=== PATIENT | male | born 1965 | race Caucasian/White ===

== ENCOUNTER 2021-05-16 18:51 | Inpatient (IN) | payer OTHER, SELFPAY ==
[~2021-05-16] VITALS: Ht 162.6 cm; Wt 85.7 kg
[2021-05-16 19:20] VITALS: BP_SYST 131
[2021-05-16] MEDS ORDERED: guaiFENesin 200 MG/CODEINE 20 MG/ 10 ML UDC PO ONE (23:15)
[2021-05-16] MEDS ORDERED: DEXAMETHASONE SOD PHOSPHATE 10 MG/ML VIAL IVP ONE (23:15)
[2021-05-16] MEDS ORDERED: cefTRIAXone 1 GM IVPB PREMIX 50 ML IV ONE (23:15)
[2021-05-16] MEDS ORDERED: IPRATROPIUM BROM 0.5 MG/2.5 ML VIAL.NEB (ATROVENT) INH ONE (23:15)
[2021-05-16] MEDS ORDERED: ALBUTEROL SULFATE 0.083% 2.5 MG/3 ML VIAL.NEB INH ONE (23:15)
[2021-05-16] MEDS ORDERED: NACL 0.9% 1,000 ML IV ONE (23:15)
[2021-05-16 23:49] LABS: BASOPHILS % (AUTO) 0.4 % (0.0-2.0); HEMOGLOBIN 13.3 g/dL (14.0-18.0); LYMPHOCYTES # (AUTO) 0.5 K/uL (1.0-5.5); LYMPHOCYTES % (AUTO) 14.1 % (20.5-51.5); MEAN CORPUSCULAR HEMOGLOBIN 26 pg (27-31); MEAN CORPUSCULAR HGB CONC 33 % (32-36); MEAN CORPUSCULAR VOLUME 79 fL (79.0-98.0); MONOCYTES # (AUTO) 0.2 K/uL (0.0-1.0); MONOCYTES % (AUTO) 5.9 % (1.7-9.3); NEUTROPHILS # (AUTO) 2.8 K/uL (1.8-7.7); NEUTROPHILS % (AUTO) 79.6 % (40.0-70.0); PLATELET COUNT (AUTO) 168 K/uL (130-430); RED BLOOD CELL COUNT(AUTO) 5.07 MIL/uL (4.2-6.2); RED CELL DISTRIBUTION WIDTH 13.7 % (9.0-15.0); WHITE BLOOD COUNT (AUTO) 3.5 K/uL (4.8-10.8)
[2021-05-16 23:56] LABS: CALCIUM 8.3 mg/dL (8.4-11.0); CREATININE 0.97 mg/dL (0.55-1.30); POTASSIUM 3.8 mmol/L (3.5-5.1)
[2021-05-17 00:02] LABS: ALBUMIN 3.1 g/dL (3.4-4.8); TOTAL BILIRUBIN 0.3 mg/dL (0.0-1.0)
[2021-05-17] MEDS ORDERED: guaiFENesin 200 MG/CODEINE 20 MG/ 10 ML UDC ONE (05:43)
[2021-05-17] MEDS ORDERED: DEXAMETHASONE SOD PHOSPHATE 10 MG/ML VIAL ONE ×2 (05:44→22:16)
[2021-05-17] MEDS: cefTRIAXone 1 GM IVPB PREMIX 50 ML IV SCH (06:11)
[2021-05-17] MEDS ORDERED: AZITHROMYCIN 500 MG/VIAL (ZITHROMAX) IV ONE (07:42)
[2021-05-17] MEDS: AZITHROMYCIN 500 MG in NS 250 ML IV SCH (07:56)
[2021-05-17 08:20] LABS: BASOPHILS % (AUTO) 0.2 % (0.0-2.0); HEMATOCRIT 35.6 % (36-54); LYMPHOCYTES # (AUTO) 0.4 K/uL (1.0-5.5); LYMPHOCYTES % (AUTO) 11.6 % (20.5-51.5); MEAN CORPUSCULAR HEMOGLOBIN 26 pg (27-31); MEAN CORPUSCULAR HGB CONC 34 % (32-36); MEAN CORPUSCULAR VOLUME 78 fL (79.0-98.0); MONOCYTES # (AUTO) 0.2 K/uL (0.0-1.0); MONOCYTES % (AUTO) 4.4 % (1.7-9.3); NEUTROPHILS # (AUTO) 2.9 K/uL (1.8-7.7); NEUTROPHILS % (AUTO) 83.8 % (40.0-70.0); PLATELET COUNT (AUTO) 177 K/uL (130-430); RED BLOOD CELL COUNT(AUTO) 4.59 MIL/uL (4.2-6.2); RED CELL DISTRIBUTION WIDTH 13.6 % (9.0-15.0); WHITE BLOOD COUNT (AUTO) 3.5 K/uL (4.8-10.8)
[2021-05-17 09:02] LABS: ALBUMIN 2.8 g/dL (3.4-4.8); CALCIUM 7.9 mg/dL (8.4-11.0); CREATININE 0.85 mg/dL (0.55-1.30); POTASSIUM 4.2 mmol/L (3.5-5.1); THYROID STIMULATING HORMONE 0.38 uIu/mL (0.36-3.74); TOTAL BILIRUBIN 0.2 mg/dL (0.0-1.0)
[2021-05-17 21:30] LABS: PROTHROMBIN TIME 10.2 SECS (9.5-12.5)
[2021-05-17] MEDS ORDERED: DEXAMETHASONE SOD PHOSPHATE 10 MG/ML VIAL IVP SCH (22:00)
[2021-05-17 23:00] VITALS: BP_SYST 116
[2021-05-18 08:24] LABS: BASOPHILS % (AUTO) 0.1 % (0.0-2.0); HEMATOCRIT 39.3 % (36-54); HEMOGLOBIN 13.1 g/dL (14.0-18.0); LYMPHOCYTES # (AUTO) 0.6 K/uL (1.0-5.5); LYMPHOCYTES % (AUTO) 9.8 % (20.5-51.5); MEAN CORPUSCULAR HEMOGLOBIN 26 pg (27-31); MEAN CORPUSCULAR HGB CONC 33 % (32-36); MEAN CORPUSCULAR VOLUME 79 fL (79.0-98.0); MONOCYTES # (AUTO) 0.5 K/uL (0.0-1.0); NEUTROPHILS # (AUTO) 5.5 K/uL (1.8-7.7); NEUTROPHILS % (AUTO) 83.1 % (40.0-70.0); PLATELET COUNT (AUTO) 208 K/uL (130-430); RED BLOOD CELL COUNT(AUTO) 4.99 MIL/uL (4.2-6.2); RED CELL DISTRIBUTION WIDTH 13.9 % (9.0-15.0); WHITE BLOOD COUNT (AUTO) 6.6 K/uL (4.8-10.8)
[2021-05-18] MEDS ORDERED: AZITHROMYCIN 500 MG/VIAL (ZITHROMAX) IV ONE (08:32)
[2021-05-18] MEDS ORDERED: cefTRIAXone 1 GM VIAL ONE (08:33)
[2021-05-18] MEDS: AZITHROMYCIN 500 MG in NS 250 ML IV SCH (08:52)
[2021-05-18] MEDS: ASCORBIC ACID 500 MG TABLET PO SCH (08:52)
[2021-05-18] MEDS: CHOLECALCIFEROL (VITAMIN D3) 5,000 UNIT TABLET PO SCH (08:52)
[2021-05-18] MEDS: FAMOTIDINE 20 MG TABLET PO SCH (08:52)
[2021-05-18] MEDS: APIXABAN 2.5 MG TABLET PO SCH (08:53)
[2021-05-18] MEDS ORDERED: PROMETHAZINE-DM 6.25 MG-15 MG/5 ML UDC PO PRN (09:00)
[2021-05-18] MEDS ORDERED: LORazepam 1 MG TABLET ONE (09:27)
[2021-05-18 09:29] LABS: CALCIUM 8.7 mg/dL (8.4-11.0); CREATININE 0.88 mg/dL (0.55-1.30); POTASSIUM 4.1 mmol/L (3.5-5.1)
[2021-05-18 09:30] VITALS: BP_SYST 122
[2021-05-18 09:35] LABS: ALBUMIN 2.8 g/dL (3.4-4.8); TOTAL BILIRUBIN 0.2 mg/dL (0.0-1.0)
[2021-05-18] MEDS: cefTRIAXone 1 GM IVPB PREMIX 50 ML IV SCH (11:20)
[2021-05-18] MEDS: LORazepam 1 MG TABLET PO PRN (14:17)
[2021-05-19] MEDS ORDERED: IVERMECTIN 3 MG TABLET PO ONE (03:15)
[2021-05-19 04:00] VITALS: BP_SYST 126
[2021-05-19 08:05] VITALS: BP_SYST 118
[2021-05-19] MEDS: FAMOTIDINE 20 MG TABLET PO SCH ×2 (09:04→21:12)
[2021-05-19] MEDS: ASCORBIC ACID 500 MG TABLET PO SCH ×2 (09:04→21:12)
[2021-05-19] MEDS: CHOLECALCIFEROL (VITAMIN D3) 5,000 UNIT TABLET PO SCH (09:04)
[2021-05-19] MEDS: APIXABAN 2.5 MG TABLET PO SCH ×2 (09:07→21:33)
[2021-05-19] MEDS: AZITHROMYCIN 500 MG in NS 250 ML IV SCH (09:52)
[2021-05-19] MEDS: cefTRIAXone 1 GM IVPB PREMIX 50 ML IV SCH (09:52)
[2021-05-19 12:15] VITALS: BP_SYST 120
[2021-05-19] MEDS ORDERED: LORA10TA7 PO (12:43)
[2021-05-19] MEDS ORDERED: ASPI-1393 PO (12:43)
[2021-05-19 18:50] VITALS: BP_SYST 124
[2021-05-19 20:00] VITALS: BP_SYST 132
[2021-05-19] MEDS: DEXAMETHASONE SOD PHOSPHATE 10 MG/ML VIAL IVP SCH (22:29)
[2021-05-20] VITALS (7 sets, daily range): BP systolic 115–130
[2021-05-20] MEDS: LORATADINE 10 MG TABLET PO SCH (09:07)
[2021-05-20] MEDS: CHOLECALCIFEROL (VITAMIN D3) 5,000 UNIT TABLET PO SCH (09:07)
[2021-05-20] MEDS: ASPIRIN 81 MG TABLET(ECOTRIN) PO SCH (09:08)
[2021-05-20] MEDS: ASCORBIC ACID 500 MG TABLET PO SCH ×2 (09:08→21:19)
[2021-05-20] MEDS: FAMOTIDINE 20 MG TABLET PO SCH ×2 (09:08→21:19)
[2021-05-20] MEDS: DOXYCYCLINE HYCLATE 100 MG in D5W 100 ML IV SCH ×2 (09:09→21:56)
[2021-05-20] MEDS: APIXABAN 2.5 MG TABLET PO SCH ×2 (09:11→21:20)
[2021-05-20 09:33] LABS: C-REACTIVE PROTEIN QUANT 10.4 mg/dL (0-0.5); CALCIUM 8.7 mg/dL (8.4-11.0); CREATININE 0.93 mg/dL (0.55-1.30); HEMATOCRIT 39.3 % (36-54); HEMOGLOBIN 13.2 g/dL (14.0-18.0); LYMPHOCYTES # (AUTO) 0.3 K/uL (1.0-5.5); LYMPHOCYTES % (AUTO) 5.4 % (20.5-51.5); MEAN CORPUSCULAR HEMOGLOBIN 27 pg (27-31); MEAN CORPUSCULAR HGB CONC 34 % (32-36); MEAN CORPUSCULAR VOLUME 79 fL (79.0-98.0); MONOCYTES # (AUTO) 0.1 K/uL (0.0-1.0); MONOCYTES % (AUTO) 2.1 % (1.7-9.3); NEUTROPHILS # (AUTO) 5.4 K/uL (1.8-7.7); NEUTROPHILS % (AUTO) 92.5 % (40.0-70.0); PLATELET COUNT (AUTO) 245 K/uL (130-430); POTASSIUM 4.4 mmol/L (3.5-5.1); RED BLOOD CELL COUNT(AUTO) 4.97 MIL/uL (4.2-6.2); RED CELL DISTRIBUTION WIDTH 13.8 % (9.0-15.0); WHITE BLOOD COUNT (AUTO) 5.9 K/uL (4.8-10.8)
[2021-05-20] MEDS: CEFTRIAXONE SOD 1 GM/ D5W 50 ML IV SCH ×2 (11:53)
[2021-05-20] MEDS: DEXAMETHASONE SOD PHOSPHATE 10 MG/ML VIAL IVP SCH (22:35)
[2021-05-21] VITALS: BP_SYST 122
[2021-05-21 04:00] VITALS: BP_SYST 126
[2021-05-21 08:00] VITALS: BP_SYST 120
[2021-05-21 08:21] LABS: BASOPHILS % (AUTO) 0.1 % (0.0-2.0); HEMATOCRIT 37.1 % (36-54); HEMOGLOBIN 12.3 g/dL (14.0-18.0); LYMPHOCYTES # (AUTO) 0.4 K/uL (1.0-5.5); MEAN CORPUSCULAR HEMOGLOBIN 26 pg (27-31); MEAN CORPUSCULAR HGB CONC 33 % (32-36); MEAN CORPUSCULAR VOLUME 79 fL (79.0-98.0); MONOCYTES # (AUTO) 0.3 K/uL (0.0-1.0); MONOCYTES % (AUTO) 2.9 % (1.7-9.3); NEUTROPHILS # (AUTO) 8.6 K/uL (1.8-7.7); PLATELET COUNT (AUTO) 300 K/uL (130-430); RED BLOOD CELL COUNT(AUTO) 4.68 MIL/uL (4.2-6.2); RED CELL DISTRIBUTION WIDTH 13.9 % (9.0-15.0); WHITE BLOOD COUNT (AUTO) 9.3 K/uL (4.8-10.8)
[2021-05-21] MEDS ORDERED: TOCILIZUMAB 600 MG in NS 100 ML IV ONE (08:30)
[2021-05-21 08:33] LABS: CALCIUM 8.8 mg/dL (8.4-11.0); CREATININE 0.8 mg/dL (0.55-1.30); POTASSIUM 4.4 mmol/L (3.5-5.1)
[2021-05-21] MEDS: LORATADINE 10 MG TABLET PO SCH (09:31)
[2021-05-21] MEDS: CHOLECALCIFEROL (VITAMIN D3) 5,000 UNIT TABLET PO SCH (09:31)
[2021-05-21] MEDS: ASPIRIN 81 MG TABLET(ECOTRIN) PO SCH (09:31)
[2021-05-21] MEDS: APIXABAN 2.5 MG TABLET PO SCH ×2 (09:31→21:47)
[2021-05-21] MEDS: FAMOTIDINE 20 MG TABLET PO SCH ×2 (09:32→21:44)
[2021-05-21] MEDS: FLUoxetine HCL 20 MG CAPSULE (PROzac) PO SCH (09:32)
[2021-05-21] MEDS: ASCORBIC ACID 500 MG TABLET PO SCH ×2 (09:32→21:45)
[2021-05-21] MEDS: DOXYCYCLINE HYCLATE 100 MG in D5W 100 ML IV SCH ×2 (09:32→21:46)
[2021-05-21] MEDS: CEFTRIAXONE SOD 1 GM/ D5W 50 ML IV SCH ×2 (11:52)
[2021-05-21 12:00] VITALS: BP_SYST 129
[2021-05-21 16:00] VITALS: BP_SYST 129
[2021-05-21 20:00] VITALS: BP_SYST 128
[2021-05-21] MEDS: ALPRAZolam 0.25 MG TABLET PO SCH (21:45)
[2021-05-21] MEDS: DEXAMETHASONE SOD PHOSPHATE 10 MG/ML VIAL IVP SCH (21:47)
[2021-05-22] VITALS: BP_SYST 128
[2021-05-22 04:00] VITALS: BP_SYST 128
[2021-05-22 07:38] LABS: BASOPHILS % (AUTO) 0.1 % (0.0-2.0); HEMATOCRIT 38.7 % (36-54); HEMOGLOBIN 12.8 g/dL (14.0-18.0); LYMPHOCYTES # (AUTO) 0.5 K/uL (1.0-5.5); LYMPHOCYTES % (AUTO) 4.5 % (20.5-51.5); MEAN CORPUSCULAR HEMOGLOBIN 26 pg (27-31); MEAN CORPUSCULAR HGB CONC 33 % (32-36); MEAN CORPUSCULAR VOLUME 79 fL (79.0-98.0); MONOCYTES # (AUTO) 0.6 K/uL (0.0-1.0); MONOCYTES % (AUTO) 5.8 % (1.7-9.3); NEUTROPHILS # (AUTO) 9.5 K/uL (1.8-7.7); NEUTROPHILS % (AUTO) 89.6 % (40.0-70.0); PLATELET COUNT (AUTO) 342 K/uL (130-430); RED BLOOD CELL COUNT(AUTO) 4.88 MIL/uL (4.2-6.2); RED CELL DISTRIBUTION WIDTH 13.8 % (9.0-15.0); WHITE BLOOD COUNT (AUTO) 10.7 K/uL (4.8-10.8)
[2021-05-22 08:00] VITALS: BP_SYST 132
[2021-05-22 08:00] LABS: ALBUMIN 2.4 g/dL (3.4-4.8); CALCIUM 9.1 mg/dL (8.4-11.0); CREATININE 0.8 mg/dL (0.55-1.30); POTASSIUM 4.3 mmol/L (3.5-5.1); TOTAL BILIRUBIN 0.4 mg/dL (0.0-1.0)
[2021-05-22] MEDS: ASPIRIN 81 MG TABLET(ECOTRIN) PO SCH (09:20)
[2021-05-22] MEDS: FAMOTIDINE 20 MG TABLET PO SCH ×2 (09:20→21:48)
[2021-05-22] MEDS: FLUoxetine HCL 20 MG CAPSULE (PROzac) PO SCH (09:20)
[2021-05-22] MEDS: CHOLECALCIFEROL (VITAMIN D3) 5,000 UNIT TABLET PO SCH (09:20)
[2021-05-22] MEDS: ASCORBIC ACID 500 MG TABLET PO SCH ×2 (09:20→21:50)
[2021-05-22] MEDS: LORATADINE 10 MG TABLET PO SCH (09:20)
[2021-05-22] MEDS: DOXYCYCLINE HYCLATE 100 MG in D5W 100 ML IV SCH ×2 (09:21→21:52)
[2021-05-22] MEDS: APIXABAN 2.5 MG TABLET PO SCH ×2 (09:21→21:49)
[2021-05-22] MEDS: CEFTRIAXONE SOD 1 GM/ D5W 50 ML IV SCH ×2 (11:55)
[2021-05-22 12:00] VITALS: BP_SYST 129
[2021-05-22 16:33] VITALS: BP_SYST 129
[2021-05-22] MEDS: ALPRAZolam 0.25 MG TABLET PO SCH (21:50)
[2021-05-22] MEDS: MELATONIN 5 MG TABLET PO SCH (21:51)
[2021-05-22 22:13] VITALS: BP_SYST 117
[2021-05-22] MEDS: DEXAMETHASONE SOD PHOSPHATE 10 MG/ML VIAL IVP SCH (23:44)
[2021-05-23 00:56] VITALS: BP_SYST 101
[2021-05-23 08:00] VITALS: BP_SYST 125
[2021-05-23] MEDS: LORATADINE 10 MG TABLET PO SCH (08:58)
[2021-05-23] MEDS: DOXYCYCLINE HYCLATE 100 MG in D5W 100 ML IV SCH ×2 (08:58→20:13)
[2021-05-23] MEDS: ASCORBIC ACID 500 MG TABLET PO SCH ×2 (08:58→20:18)
[2021-05-23] MEDS: FAMOTIDINE 20 MG TABLET PO SCH ×2 (08:59→20:18)
[2021-05-23] MEDS: CHOLECALCIFEROL (VITAMIN D3) 5,000 UNIT TABLET PO SCH (08:59)
[2021-05-23] MEDS: ASPIRIN 81 MG TABLET(ECOTRIN) PO SCH (08:59)
[2021-05-23] MEDS: APIXABAN 2.5 MG TABLET PO SCH ×2 (09:00→20:20)
[2021-05-23 09:10] LABS: HEMATOCRIT 38.3 % (36-54); HEMOGLOBIN 12.8 g/dL (14.0-18.0); LYMPHOCYTES # (AUTO) 0.3 K/uL (1.0-5.5); LYMPHOCYTES % (AUTO) 4.4 % (20.5-51.5); MEAN CORPUSCULAR HEMOGLOBIN 26 pg (27-31); MEAN CORPUSCULAR HGB CONC 33 % (32-36); MEAN CORPUSCULAR VOLUME 78 fL (79.0-98.0); MONOCYTES # (AUTO) 0.2 K/uL (0.0-1.0); MONOCYTES % (AUTO) 2.5 % (1.7-9.3); NEUTROPHILS # (AUTO) 6.4 K/uL (1.8-7.7); NEUTROPHILS % (AUTO) 93.1 % (40.0-70.0); PLATELET COUNT (AUTO) 332 K/uL (130-430); RED BLOOD CELL COUNT(AUTO) 4.91 MIL/uL (4.2-6.2); RED CELL DISTRIBUTION WIDTH 13.6 % (9.0-15.0); WHITE BLOOD COUNT (AUTO) 6.9 K/uL (4.8-10.8)
[2021-05-23 09:38] LABS: CREATININE 0.79 mg/dL (0.55-1.30); POTASSIUM 4.3 mmol/L (3.5-5.1)
[2021-05-23 12:00] VITALS: BP_SYST 112
[2021-05-23] MEDS: CEFTRIAXONE SOD 1 GM/ D5W 50 ML IV SCH ×2 (12:38)
[2021-05-23 16:07] VITALS: BP_SYST 122
[2021-05-23] MEDS: FLUoxetine HCL 20 MG CAPSULE (PROzac) PO SCH (20:17)
[2021-05-23] MEDS: ALPRAZolam 0.25 MG TABLET PO SCH (20:20)
[2021-05-23] MEDS: DEXAMETHASONE SOD PHOSPHATE 10 MG/ML VIAL IVP SCH (20:21)
[2021-05-23] MEDS: MELATONIN 5 MG TABLET PO SCH (21:00)
[2021-05-24 01:34] VITALS: BP_SYST 112
[2021-05-24 04:00] VITALS: BP_SYST 147
[2021-05-24] MEDS: ALBUTEROL MDI INHALATION 8 GM INH INH PRN (06:38)
[2021-05-24 07:50] LABS: BASOPHILS % (AUTO) 0.2 % (0.0-2.0); EOSINOPHILS % (AUTO) 0.1 % (0.0-4.0); HEMOGLOBIN 12.7 g/dL (14.0-18.0); LYMPHOCYTES # (AUTO) 0.4 K/uL (1.0-5.5); LYMPHOCYTES % (AUTO) 5.1 % (20.5-51.5); MEAN CORPUSCULAR HEMOGLOBIN 26 pg (27-31); MEAN CORPUSCULAR HGB CONC 33 % (32-36); MEAN CORPUSCULAR VOLUME 78 fL (79.0-98.0); MONOCYTES # (AUTO) 0.2 K/uL (0.0-1.0); MONOCYTES % (AUTO) 3.4 % (1.7-9.3); NEUTROPHILS # (AUTO) 6.3 K/uL (1.8-7.7); NEUTROPHILS % (AUTO) 91.2 % (40.0-70.0); PLATELET COUNT (AUTO) 330 K/uL (130-430); RED BLOOD CELL COUNT(AUTO) 4.84 MIL/uL (4.2-6.2); RED CELL DISTRIBUTION WIDTH 13.2 % (9.0-15.0); WHITE BLOOD COUNT (AUTO) 6.9 K/uL (4.8-10.8)
[2021-05-24 08:00] VITALS: BP_SYST 118
[2021-05-24] MEDS: DOCUSATE SODIUM 100 MG CAPSULE PO SCH ×2 (09:00→09:13)
[2021-05-24] MEDS: DOXYCYCLINE HYCLATE 100 MG in D5W 100 ML IV SCH ×2 (09:10→21:40)
[2021-05-24] MEDS: FAMOTIDINE 20 MG TABLET PO SCH ×2 (09:11→21:41)
[2021-05-24] MEDS: ASPIRIN 81 MG TABLET(ECOTRIN) PO SCH (09:11)
[2021-05-24] MEDS: ASCORBIC ACID 500 MG TABLET PO SCH ×2 (09:11→21:41)
[2021-05-24] MEDS: LORATADINE 10 MG TABLET PO SCH (09:11)
[2021-05-24] MEDS: CHOLECALCIFEROL (VITAMIN D3) 5,000 UNIT TABLET PO SCH (09:12)
[2021-05-24] MEDS: APIXABAN 2.5 MG TABLET PO SCH ×2 (09:12→21:42)
[2021-05-24 09:17] LABS: CALCIUM 9.3 mg/dL (8.4-11.0); CREATININE 0.72 mg/dL (0.55-1.30); POTASSIUM 4.5 mmol/L (3.5-5.1)
[2021-05-24 12:00] VITALS: BP_SYST 115
[2021-05-24] MEDS: CEFTRIAXONE SOD 1 GM/ D5W 50 ML IV SCH ×2 (12:22)
[2021-05-24 16:00] VITALS: BP_SYST 117
[2021-05-24] MEDS: FLUoxetine HCL 20 MG CAPSULE (PROzac) PO SCH (16:59)
[2021-05-24] MEDS: ALPRAZolam 0.25 MG TABLET PO SCH (21:41)
[2021-05-24] MEDS: MELATONIN 5 MG TABLET PO SCH (21:43)
[2021-05-24] MEDS: DEXAMETHASONE SOD PHOSPHATE 10 MG/ML VIAL IVP SCH (22:00)
[2021-05-25 00:28] VITALS: BP_SYST 106
[2021-05-25 04:55] VITALS: BP_SYST 107
[2021-05-25 08:00] VITALS: BP_SYST 106
[2021-05-25] MEDS: DOXYCYCLINE HYCLATE 100 MG in D5W 100 ML IV SCH ×2 (09:09→21:20)
[2021-05-25] MEDS: LORATADINE 10 MG TABLET PO SCH (09:09)
[2021-05-25] MEDS: ASPIRIN 81 MG TABLET(ECOTRIN) PO SCH (09:09)
[2021-05-25] MEDS: APIXABAN 2.5 MG TABLET PO SCH ×2 (09:10→21:13)
[2021-05-25] MEDS: FAMOTIDINE 20 MG TABLET PO SCH ×2 (09:10→21:16)
[2021-05-25] MEDS: CHOLECALCIFEROL (VITAMIN D3) 5,000 UNIT TABLET PO SCH (09:10)
[2021-05-25] MEDS: ASCORBIC ACID 500 MG TABLET PO SCH ×2 (09:10→21:16)
[2021-05-25] MEDS: CEFTRIAXONE SOD 1 GM/ D5W 50 ML IV SCH ×2 (11:00)
[2021-05-25 11:30] VITALS: BP_SYST 112
[2021-05-25 12:00] VITALS: BP_SYST 112
[2021-05-25 20:22] VITALS: BP_SYST 107
[2021-05-25] MEDS: FLUoxetine HCL 20 MG CAPSULE (PROzac) PO SCH ×2 (21:00→21:08)
[2021-05-25] MEDS: ALPRAZolam 0.25 MG TABLET PO SCH (21:15)
[2021-05-25] MEDS: MELATONIN 5 MG TABLET PO SCH (21:26)
[2021-05-25] MEDS: DEXAMETHASONE SOD PHOSPHATE 10 MG/ML VIAL IVP SCH (21:27)
[2021-05-26 00:01] VITALS: BP_SYST 115
[2021-05-26 08:00] VITALS: BP_SYST 96
[2021-05-26] MEDS: CHOLECALCIFEROL (VITAMIN D3) 5,000 UNIT TABLET PO SCH (09:00)
[2021-05-26] MEDS: DOXYCYCLINE HYCLATE 100 MG in D5W 100 ML IV SCH ×2 (09:00→21:00)
[2021-05-26] MEDS: APIXABAN 2.5 MG TABLET PO SCH ×2 (09:00→21:00)
[2021-05-26] MEDS: LORATADINE 10 MG TABLET PO SCH (09:00)
[2021-05-26] MEDS: ASCORBIC ACID 500 MG TABLET PO SCH ×2 (09:00→21:00)
[2021-05-26] MEDS: ASPIRIN 81 MG TABLET(ECOTRIN) PO SCH (09:00)
[2021-05-26] MEDS: FAMOTIDINE 20 MG TABLET PO SCH ×2 (09:00→21:00)
[2021-05-26 10:07] LABS: BASOPHILS % (AUTO) 0.2 % (0.0-2.0); EOSINOPHILS % (AUTO) 0.1 % (0.0-4.0); HEMATOCRIT 39.1 % (36-54); HEMOGLOBIN 12.9 g/dL (14.0-18.0); LYMPHOCYTES # (AUTO) 0.5 K/uL (1.0-5.5); MEAN CORPUSCULAR HEMOGLOBIN 26 pg (27-31); MEAN CORPUSCULAR HGB CONC 33 % (32-36); MEAN CORPUSCULAR VOLUME 79 fL (79.0-98.0); MONOCYTES # (AUTO) 0.2 K/uL (0.0-1.0); MONOCYTES % (AUTO) 2.2 % (1.7-9.3); NEUTROPHILS % (AUTO) 92.5 % (40.0-70.0); PLATELET COUNT (AUTO) 323 K/uL (130-430); RED BLOOD CELL COUNT(AUTO) 4.97 MIL/uL (4.2-6.2); RED CELL DISTRIBUTION WIDTH 13.8 % (9.0-15.0); WHITE BLOOD COUNT (AUTO) 9.7 K/uL (4.8-10.8)
[2021-05-26 11:01] LABS: ALBUMIN 2.5 g/dL (3.4-4.8); CALCIUM 8.7 mg/dL (8.4-11.0); CREATININE 0.76 mg/dL (0.55-1.30); PHOSPHORUS 3.8 mg/dL (2.7-4.5); POTASSIUM 4.1 mmol/L (3.5-5.1); TOTAL BILIRUBIN 0.4 mg/dL (0.0-1.0)
[2021-05-26] MEDS: LORazepam 1 MG TABLET PO PRN (11:32)
[2021-05-26] MEDS: CEFTRIAXONE SOD 1 GM/ D5W 50 ML IV SCH ×2 (11:32)
[2021-05-26] MEDS: DOCUSATE SODIUM 100 MG CAPSULE PO PRN (11:32)
[2021-05-26 12:00] VITALS: BP_SYST 112
[2021-05-26 16:00] VITALS: BP_SYST 109
[2021-05-26 20:44] VITALS: BP_SYST 113
[2021-05-26] MEDS: FLUoxetine HCL 20 MG CAPSULE (PROzac) PO SCH (21:00)
[2021-05-26] MEDS: MELATONIN 5 MG TABLET PO SCH (21:00)
[2021-05-26] MEDS: ALPRAZolam 0.25 MG TABLET PO SCH (21:00)
[2021-05-26] MEDS: DEXAMETHASONE SOD PHOSPHATE 10 MG/ML VIAL IVP SCH (22:00)
[2021-05-26 23:59] VITALS: BP_SYST 124
[2021-05-27 00:01] VITALS: BP_SYST 124
[2021-05-27 05:21] VITALS: BP_SYST 117
[2021-05-27 08:33] VITALS: BP_SYST 116
[2021-05-27] MEDS: DOXYCYCLINE HYCLATE 100 MG in D5W 100 ML IV SCH ×2 (08:44→21:53)
[2021-05-27] MEDS: FAMOTIDINE 20 MG TABLET PO SCH ×2 (08:44→21:40)
[2021-05-27] MEDS: LORATADINE 10 MG TABLET PO SCH (08:44)
[2021-05-27] MEDS: ASCORBIC ACID 500 MG TABLET PO SCH ×2 (08:45→21:39)
[2021-05-27] MEDS: ASPIRIN 81 MG TABLET(ECOTRIN) PO SCH (08:45)
[2021-05-27] MEDS: APIXABAN 2.5 MG TABLET PO SCH ×2 (08:46→21:41)
[2021-05-27] MEDS: CHOLECALCIFEROL (VITAMIN D3) 5,000 UNIT TABLET PO SCH (09:30)
[2021-05-27 11:33] VITALS: BP_SYST 111
[2021-05-27] MEDS: CEFTRIAXONE SOD 1 GM/ D5W 50 ML IV SCH ×2 (12:26)
[2021-05-27 15:32] VITALS: BP_SYST 117
[2021-05-27 20:15] VITALS: BP_SYST 118
[2021-05-27] MEDS: FLUoxetine HCL 20 MG CAPSULE (PROzac) PO SCH (21:40)
[2021-05-27] MEDS: MELATONIN 5 MG TABLET PO SCH (21:40)
[2021-05-27] MEDS: ALPRAZolam 0.25 MG TABLET PO SCH (21:41)
[2021-05-27] MEDS: DEXAMETHASONE SOD PHOSPHATE 10 MG/ML VIAL IVP SCH (21:50)
[2021-05-28 00:40] VITALS: BP_SYST 116
[2021-05-28 08:00] VITALS: BP_SYST 109
[2021-05-28] MEDS: DOXYCYCLINE HYCLATE 100 MG in D5W 100 ML IV SCH ×2 (08:45→21:11)
[2021-05-28] MEDS: FAMOTIDINE 20 MG TABLET PO SCH ×2 (08:45→22:33)
[2021-05-28] MEDS: CHOLECALCIFEROL (VITAMIN D3) 5,000 UNIT TABLET PO SCH (08:46)
[2021-05-28] MEDS: LORATADINE 10 MG TABLET PO SCH (08:46)
[2021-05-28] MEDS: ASCORBIC ACID 500 MG TABLET PO SCH ×2 (08:46→22:33)
[2021-05-28] MEDS: ASPIRIN 81 MG TABLET(ECOTRIN) PO SCH (08:46)
[2021-05-28] MEDS: APIXABAN 2.5 MG TABLET PO SCH ×2 (08:47→22:34)
[2021-05-28] MEDS: CEFTRIAXONE SOD 1 GM/ D5W 50 ML IV SCH ×2 (10:50)
[2021-05-28 12:00] VITALS: BP_SYST 117
[2021-05-28 16:00] VITALS: BP_SYST 111
[2021-05-28] MEDS: BENZOCAINE/MENTHOL 1 EACH LOZENGE MM PRN (17:16)
[2021-05-28] MEDS: DEXAMETHASONE SOD PHOSPHATE 10 MG/ML VIAL IVP SCH (21:10)
[2021-05-28] MEDS: MELATONIN 5 MG TABLET PO SCH (22:32)
[2021-05-28] MEDS: ALPRAZolam 0.25 MG TABLET PO SCH (22:33)
[2021-05-28] MEDS: FLUoxetine HCL 20 MG CAPSULE (PROzac) PO SCH (22:33)
[2021-05-29 01:23] VITALS: BP_SYST 113
[2021-05-29] MEDS: ALBUTEROL MDI INHALATION 8 GM INH INH PRN (08:53)
[2021-05-29] MEDS: ASPIRIN 81 MG TABLET(ECOTRIN) PO SCH (09:08)
[2021-05-29] MEDS: FAMOTIDINE 20 MG TABLET PO SCH ×2 (09:08→21:37)
[2021-05-29] MEDS: ASCORBIC ACID 500 MG TABLET PO SCH ×2 (09:08→21:36)
[2021-05-29] MEDS: CHOLECALCIFEROL (VITAMIN D3) 5,000 UNIT TABLET PO SCH (09:09)
[2021-05-29] MEDS: LORATADINE 10 MG TABLET PO SCH (09:09)
[2021-05-29] MEDS: APIXABAN 2.5 MG TABLET PO SCH ×2 (09:10→21:38)
[2021-05-29] MEDS: DOXYCYCLINE HYCLATE 100 MG in D5W 100 ML IV SCH ×2 (09:10→21:58)
[2021-05-29 09:51] VITALS: BP_SYST 106
[2021-05-29] MEDS: BENZOCAINE/MENTHOL 1 EACH LOZENGE MM PRN (10:47)
[2021-05-29] MEDS: CEFTRIAXONE SOD 1 GM/ D5W 50 ML IV SCH ×2 (10:48)
[2021-05-29 12:00] VITALS: BP_SYST 109
[2021-05-29 13:38] VITALS: BP_SYST 106
[2021-05-29 16:00] VITALS: BP_SYST 106
[2021-05-29 20:40] VITALS: BP_SYST 138
[2021-05-29] MEDS: DEXAMETHASONE SOD PHOSPHATE 10 MG/ML VIAL IVP SCH (21:34)
[2021-05-29] MEDS: FLUoxetine HCL 20 MG CAPSULE (PROzac) PO SCH (21:36)
[2021-05-29] MEDS: ALPRAZolam 0.25 MG TABLET PO SCH (21:37)
[2021-05-29] MEDS: MELATONIN 5 MG TABLET PO SCH (21:38)
[2021-05-30 00:26] VITALS: BP_SYST 107
[2021-05-30 08:00] VITALS: BP_SYST 111
[2021-05-30] MEDS: DOXYCYCLINE HYCLATE 100 MG in D5W 100 ML IV SCH ×2 (09:00→21:13)
[2021-05-30] MEDS: APIXABAN 2.5 MG TABLET PO SCH ×2 (09:33→21:18)
[2021-05-30] MEDS: LORATADINE 10 MG TABLET PO SCH (09:34)
[2021-05-30] MEDS: ASPIRIN 81 MG TABLET(ECOTRIN) PO SCH (09:34)
[2021-05-30] MEDS: ASCORBIC ACID 500 MG TABLET PO SCH ×2 (09:35→21:17)
[2021-05-30] MEDS: FAMOTIDINE 20 MG TABLET PO SCH ×2 (09:35→21:15)
[2021-05-30] MEDS: CHOLECALCIFEROL (VITAMIN D3) 5,000 UNIT TABLET PO SCH (09:35)
[2021-05-30] MEDS: CEFTRIAXONE SOD 1 GM/ D5W 50 ML IV SCH ×2 (11:00)
[2021-05-30 12:00] VITALS: BP_SYST 107
[2021-05-30] MEDS ORDERED: FUROSEMIDE 20 MG/2 ML VIAL IVP ONE (15:45)
[2021-05-30 16:00] VITALS: BP_SYST 109
[2021-05-30 19:00] VITALS: BP_SYST 114
[2021-05-30] MEDS: MELATONIN 5 MG TABLET PO SCH (21:13)
[2021-05-30] MEDS: predniSONE 20 MG TABLET PO SCH (21:14)
[2021-05-30] MEDS: FLUoxetine HCL 20 MG CAPSULE (PROzac) PO SCH (21:14)
[2021-05-30] MEDS: ALPRAZolam 0.25 MG TABLET PO SCH (21:15)
[2021-05-30] MEDS: FUROSEMIDE 20 MG/2 ML VIAL IVP SCH (21:22)
[2021-05-30] MEDS ORDERED: PROMETHAZINE HCL 6.25 MG/5 ML UDC ONE (23:32)
[2021-05-30] MEDS ORDERED: PROMETHAZINE-DM 6.25 MG-15 MG/5 ML UDC PO PRN (23:45)
[2021-05-31] VITALS: BP_SYST 116
[2021-05-31] MEDS ORDERED: PROMETHAZINE HCL 6.25 MG/5 ML UDC ONE (02:43)
[2021-05-31 08:45] LABS: C-REACTIVE PROTEIN QUANT 7.9 mg/dL (0-0.5)
[2021-05-31] MEDS: FUROSEMIDE 20 MG/2 ML VIAL IVP SCH ×2 (09:00→22:37)
[2021-05-31 09:40] VITALS: BP_SYST 101
[2021-05-31] MEDS: ASCORBIC ACID 500 MG TABLET PO SCH ×2 (10:00→22:37)
[2021-05-31] MEDS: LORATADINE 10 MG TABLET PO SCH (10:00)
[2021-05-31] MEDS: ASPIRIN 81 MG TABLET(ECOTRIN) PO SCH (10:01)
[2021-05-31] MEDS: DOXYCYCLINE HYCLATE 100 MG in D5W 100 ML IV SCH ×2 (10:01→22:36)
[2021-05-31] MEDS: CHOLECALCIFEROL (VITAMIN D3) 5,000 UNIT TABLET PO SCH (10:01)
[2021-05-31] MEDS: FAMOTIDINE 20 MG TABLET PO SCH ×2 (10:01→22:38)
[2021-05-31] MEDS: APIXABAN 2.5 MG TABLET PO SCH ×2 (10:06→22:38)
[2021-05-31] MEDS: CEFTRIAXONE SOD 1 GM/ D5W 50 ML IV SCH ×2 (11:00)
[2021-05-31 11:39] VITALS: BP_SYST 101; BP_SYST 140
[2021-05-31 15:42] VITALS: BP_SYST 120
[2021-05-31] MEDS: BENZOCAINE/MENTHOL 1 EACH LOZENGE MM PRN (16:10)
[2021-05-31 20:00] VITALS: BP_SYST 146
[2021-05-31] MEDS: MELATONIN 5 MG TABLET PO SCH (21:00)
[2021-05-31] MEDS: predniSONE 20 MG TABLET PO SCH (22:37)
[2021-05-31] MEDS: FLUoxetine HCL 20 MG CAPSULE (PROzac) PO SCH (22:38)
[2021-06-01] VITALS: BP_SYST 117; BP_SYST 146
[2021-06-01 08:00] VITALS: BP_SYST 132
[2021-06-01 10:25] LABS: BASOPHILS % (AUTO) 0.2 % (0.0-2.0); EOSINOPHILS # (AUTO) 0.1 K/uL (0.0-0.4); EOSINOPHILS % (AUTO) 0.6 % (0.0-4.0); HEMATOCRIT 41.2 % (36-54); HEMOGLOBIN 13.8 g/dL (14.0-18.0); LYMPHOCYTES # (AUTO) 0.6 K/uL (1.0-5.5); LYMPHOCYTES % (AUTO) 5.8 % (20.5-51.5); MEAN CORPUSCULAR HEMOGLOBIN 27 pg (27-31); MEAN CORPUSCULAR HGB CONC 34 % (32-36); MEAN CORPUSCULAR VOLUME 79 fL (79.0-98.0); MONOCYTES # (AUTO) 0.4 K/uL (0.0-1.0); NEUTROPHILS # (AUTO) 9.2 K/uL (1.8-7.7); NEUTROPHILS % (AUTO) 89.4 % (40.0-70.0); PLATELET COUNT (AUTO) 223 K/uL (130-430); RED CELL DISTRIBUTION WIDTH 13.4 % (9.0-15.0); WHITE BLOOD COUNT (AUTO) 10.3 K/uL (4.8-10.8)
[2021-06-01] MEDS: CHOLECALCIFEROL (VITAMIN D3) 5,000 UNIT TABLET PO SCH (11:25)
[2021-06-01] MEDS: ASCORBIC ACID 500 MG TABLET PO SCH ×2 (11:25→20:46)
[2021-06-01] MEDS: LORATADINE 10 MG TABLET PO SCH (11:26)
[2021-06-01] MEDS: ASPIRIN 81 MG TABLET(ECOTRIN) PO SCH (11:26)
[2021-06-01] MEDS: APIXABAN 2.5 MG TABLET PO SCH ×2 (11:27→20:56)
[2021-06-01] MEDS: FAMOTIDINE 20 MG TABLET PO SCH ×2 (11:27→20:47)
[2021-06-01] MEDS: FUROSEMIDE 20 MG/2 ML VIAL IVP SCH ×2 (11:28→21:27)
[2021-06-01] MEDS: DOXYCYCLINE HYCLATE 100 MG in D5W 100 ML IV SCH ×2 (11:29→21:27)
[2021-06-01] MEDS: CEFTRIAXONE SOD 1 GM/ D5W 50 ML IV SCH ×2 (11:29)
[2021-06-01 11:55] LABS: CALCIUM 9.1 mg/dL (8.4-11.0); CREATININE 0.91 mg/dL (0.55-1.30); POTASSIUM 3.8 mmol/L (3.5-5.1)
[2021-06-01 14:00] VITALS: BP_SYST 132
[2021-06-01 16:00] VITALS: BP_SYST 107
[2021-06-01 20:00] VITALS: BP_SYST 100
[2021-06-01] MEDS: FLUoxetine HCL 20 MG CAPSULE (PROzac) PO SCH (20:46)
[2021-06-01] MEDS: predniSONE 20 MG TABLET PO SCH (20:46)
[2021-06-01] MEDS: MELATONIN 5 MG TABLET PO SCH (20:47)
[2021-06-02] VITALS: BP_SYST 117
[2021-06-02 07:39] LABS: BASOPHILS # (AUTO) 0.1 K/uL (0.0-0.2); BASOPHILS % (AUTO) 0.6 % (0.0-2.0); EOSINOPHILS # (AUTO) 0.1 K/uL (0.0-0.4); EOSINOPHILS % (AUTO) 0.5 % (0.0-4.0); HEMATOCRIT 42.2 % (36-54); HEMOGLOBIN 14.2 g/dL (14.0-18.0); LYMPHOCYTES # (AUTO) 0.7 K/uL (1.0-5.5); LYMPHOCYTES % (AUTO) 6.9 % (20.5-51.5); MEAN CORPUSCULAR HEMOGLOBIN 27 pg (27-31); MEAN CORPUSCULAR HGB CONC 34 % (32-36); MEAN CORPUSCULAR VOLUME 78 fL (79.0-98.0); MONOCYTES # (AUTO) 0.3 K/uL (0.0-1.0); MONOCYTES % (AUTO) 2.9 % (1.7-9.3); NEUTROPHILS # (AUTO) 8.8 K/uL (1.8-7.7); NEUTROPHILS % (AUTO) 89.1 % (40.0-70.0); PLATELET COUNT (AUTO) 219 K/uL (130-430); RED BLOOD CELL COUNT(AUTO) 5.39 MIL/uL (4.2-6.2); RED CELL DISTRIBUTION WIDTH 13.7 % (9.0-15.0); WHITE BLOOD COUNT (AUTO) 9.9 K/uL (4.8-10.8)
[2021-06-02 08:00] VITALS: BP_SYST 114
[2021-06-02] MEDS: APIXABAN 2.5 MG TABLET PO SCH ×2 (10:32→21:38)
[2021-06-02] MEDS: LORATADINE 10 MG TABLET PO SCH (10:33)
[2021-06-02] MEDS: FUROSEMIDE 20 MG/2 ML VIAL IVP SCH ×2 (10:33→21:36)
[2021-06-02] MEDS: CHOLECALCIFEROL (VITAMIN D3) 5,000 UNIT TABLET PO SCH (10:34)
[2021-06-02] MEDS: ASCORBIC ACID 500 MG TABLET PO SCH ×2 (10:34→21:37)
[2021-06-02] MEDS: ASPIRIN 81 MG TABLET(ECOTRIN) PO SCH (10:34)
[2021-06-02] MEDS: FAMOTIDINE 20 MG TABLET PO SCH ×2 (10:36→21:37)
[2021-06-02 10:44] LABS: CALCIUM 9.4 mg/dL (8.4-11.0); CREATININE 0.89 mg/dL (0.55-1.30); POTASSIUM 3.7 mmol/L (3.5-5.1)
[2021-06-02 12:00] VITALS: BP_SYST 104
[2021-06-02] MEDS: CEFTRIAXONE SOD 1 GM/ D5W 50 ML IV SCH ×2 (13:47)
[2021-06-02] MEDS: DOXYCYCLINE HYCLATE 100 MG in D5W 100 ML IV SCH ×2 (13:47→21:37)
[2021-06-02 16:00] VITALS: BP_SYST 114
[2021-06-02 20:00] VITALS: BP_SYST 117
[2021-06-02] MEDS: FLUoxetine HCL 20 MG CAPSULE (PROzac) PO SCH (21:00)
[2021-06-02] MEDS: MELATONIN 5 MG TABLET PO SCH (21:00)
[2021-06-02] MEDS: predniSONE 20 MG TABLET PO SCH (21:37)
[2021-06-03] VITALS: BP_SYST 115
[2021-06-03 04:00] VITALS: BP_SYST 117
[2021-06-03 08:00] VITALS: BP_SYST 120
[2021-06-03] MEDS: CHOLECALCIFEROL (VITAMIN D3) 5,000 UNIT TABLET PO SCH (09:11)
[2021-06-03] MEDS: LORATADINE 10 MG TABLET PO SCH (09:11)
[2021-06-03] MEDS: FAMOTIDINE 20 MG TABLET PO SCH ×2 (09:11→21:45)
[2021-06-03] MEDS: ASCORBIC ACID 500 MG TABLET PO SCH ×2 (09:11→21:45)
[2021-06-03] MEDS: ASPIRIN 81 MG TABLET(ECOTRIN) PO SCH (09:11)
[2021-06-03] MEDS: DOXYCYCLINE HYCLATE 100 MG in D5W 100 ML IV SCH ×2 (09:12→21:50)
[2021-06-03] MEDS: FUROSEMIDE 20 MG/2 ML VIAL IVP SCH ×2 (09:12→21:46)
[2021-06-03] MEDS: APIXABAN 2.5 MG TABLET PO SCH ×2 (09:17→21:43)
[2021-06-03] MEDS: FLUoxetine HCL 20 MG CAPSULE (PROzac) PO SCH (09:30)
[2021-06-03 12:00] VITALS: BP_SYST 98
[2021-06-03] MEDS: CEFTRIAXONE SOD 1 GM/ D5W 50 ML IV SCH ×2 (12:17)
[2021-06-03 16:00] VITALS: BP_SYST 100
[2021-06-03 17:22] LABS: HEMATOCRIT 42.9 % (36-54); MEAN CORPUSCULAR HEMOGLOBIN 26 pg (27-31); MEAN CORPUSCULAR HGB CONC 33 % (32-36); MEAN CORPUSCULAR VOLUME 79 fL (79.0-98.0); PLATELET COUNT (AUTO) 250 K/uL (130-430); RED BLOOD CELL COUNT(AUTO) 5.43 MIL/uL (4.2-6.2); RED CELL DISTRIBUTION WIDTH 13.5 % (9.0-15.0); WHITE BLOOD COUNT (AUTO) 13.4 K/uL (4.8-10.8)
[2021-06-03 17:54] LABS: CALCIUM 9.1 mg/dL (8.4-11.0); CREATININE 0.95 mg/dL (0.55-1.30); POTASSIUM 3.1 mmol/L (3.5-5.1)
[2021-06-03 18:00] LABS: ALBUMIN 2.2 g/dL (3.4-4.8); BILIRUBIN,DIRECT 0.1 mg/dL (0.0-0.3); TOTAL BILIRUBIN 0.4 mg/dL (0.0-1.0)
[2021-06-03 18:12] LABS: C-REACTIVE PROTEIN QUANT 5.7 mg/dL (0-0.5)
[2021-06-03] MEDS ORDERED: MAG-AL HYDROX/SIMETH 30 ML UDC ONE (18:17)
[2021-06-03] MEDS: MAG-AL HYDROX/SIMETH 30 ML UDC PO PRN (18:18)
[2021-06-03 19:48] LABS: BAND % (MANUAL) 3 % (0-6)
[2021-06-03 19:49] LABS: BASOPHILS % (MANUAL) 0 % (0-2); EOSINOPHILS % (MANUAL) 0 % (0-7); LYMPHOCYTES % (MANUAL) 8 % (20-46); MONOCYTES % (MANUAL) 1 % (0-11)
[2021-06-03 20:00] VITALS: BP_SYST 159
[2021-06-03] MEDS: MELATONIN 5 MG TABLET PO SCH (21:00)
[2021-06-03] MEDS: predniSONE 20 MG TABLET PO SCH (21:45)
[2021-06-04] VITALS (25 sets, daily range): BP systolic 84–148
[2021-06-04] MEDS ORDERED: POTASSIUM CHLORIDE 20 MEQ TAB.PRT.SR PO SCH
[2021-06-04] MEDS: MAG-AL HYDROX/SIMETH 30 ML UDC PO PRN (03:08)
[2021-06-04] MEDS ORDERED: POTASSIUM CHLORIDE 20 MEQ TAB.PRT.SR PO ONE (05:15)
[2021-06-04 07:15] LABS: BASOPHILS % (AUTO) 0.2 % (0.0-2.0); EOSINOPHILS % (AUTO) 0.3 % (0.0-4.0); HEMATOCRIT 41.9 % (36-54); HEMOGLOBIN 13.8 g/dL (14.0-18.0); LYMPHOCYTES # (AUTO) 0.5 K/uL (1.0-5.5); LYMPHOCYTES % (AUTO) 5.3 % (20.5-51.5); MEAN CORPUSCULAR HEMOGLOBIN 26 pg (27-31); MEAN CORPUSCULAR HGB CONC 33 % (32-36); MEAN CORPUSCULAR VOLUME 79 fL (79.0-98.0); MONOCYTES # (AUTO) 0.2 K/uL (0.0-1.0); MONOCYTES % (AUTO) 2.1 % (1.7-9.3); NEUTROPHILS # (AUTO) 9.1 K/uL (1.8-7.7); NEUTROPHILS % (AUTO) 92.1 % (40.0-70.0); PLATELET COUNT (AUTO) 249 K/uL (130-430); RED BLOOD CELL COUNT(AUTO) 5.28 MIL/uL (4.2-6.2); RED CELL DISTRIBUTION WIDTH 13.8 % (9.0-15.0); WHITE BLOOD COUNT (AUTO) 9.9 K/uL (4.8-10.8)
[2021-06-04 07:58] LABS: C-REACTIVE PROTEIN QUANT 4.8 mg/dL (0-0.5); CALCIUM 8.9 mg/dL (8.4-11.0); CREATININE 0.96 mg/dL (0.55-1.30); POTASSIUM 3.8 mmol/L (3.5-5.1)
[2021-06-04] MEDS ORDERED: NALOXONE HCL 0.4 MG/ML AMP (NARCAN) IVP PRN (08:45)
[2021-06-04] MEDS ORDERED: LORazepam 2 MG/ML VIAL IVP PRN (08:45)
[2021-06-04] MEDS ORDERED: ETOMIDATE 20 MG/ 10 ML VIAL (AMIDATE) IVP ONE (08:51)
[2021-06-04] MEDS ORDERED: ROCURONIUM BROMIDE 10 MG/ML (ZEMURON) IV ONE (08:51)
[2021-06-04] MEDS: FLUoxetine HCL 20 MG CAPSULE (PROzac) PO SCH (09:00)
[2021-06-04] MEDS: MORPHINE SULFATE IN 0.9 % NACL 100 ML IV PRN (09:18)
[2021-06-04] MEDS: PROPOFOL DRIP 100 ML IV PRN (09:48)
[2021-06-04] MEDS ORDERED: NOREPINEPHRINE BITARTRATE 4 MG in D5W 246 ML IV PRN (10:00)
[2021-06-04] MEDS: ASCORBIC ACID 500 MG TABLET PO SCH ×2 (11:30→20:48)
[2021-06-04] MEDS: ASPIRIN 81 MG TABLET(ECOTRIN) PO SCH (11:30)
[2021-06-04] MEDS: LORATADINE 10 MG TABLET PO SCH (11:30)
[2021-06-04] MEDS: FAMOTIDINE 20 MG TABLET PO SCH ×2 (11:30→20:48)
[2021-06-04] MEDS: CHOLECALCIFEROL (VITAMIN D3) 5,000 UNIT TABLET PO SCH (11:30)
[2021-06-04] MEDS: FUROSEMIDE 20 MG/2 ML VIAL IVP SCH ×2 (11:33→20:49)
[2021-06-04] MEDS: DOXYCYCLINE HYCLATE 100 MG in D5W 100 ML IV SCH ×2 (11:37→21:00)
[2021-06-04] MEDS: APIXABAN 2.5 MG TABLET PO SCH ×2 (11:39→20:48)
[2021-06-04] MEDS: CEFTRIAXONE SOD 1 GM/ D5W 50 ML IV SCH ×2 (13:14)
[2021-06-04 13:43] LABS: INR 1.3 (0.80-1.20); PROTHROMBIN TIME 12.6 SECS (9.5-12.5)
[2021-06-04] MEDS: D5/0.45 NS 1,000 ML IV SCH (16:19)
[2021-06-04] MEDS: predniSONE 20 MG TABLET PO SCH (20:48)
[2021-06-04] MEDS: MELATONIN 5 MG TABLET PO SCH (21:00)
[2021-06-05] VITALS (28 sets, daily range): BP systolic 84–113
[2021-06-05] MEDS: PROPOFOL DRIP 100 ML IV PRN ×4 (01:26→22:16)
[2021-06-05 07:23] LABS: BASOPHILS % (AUTO) 0.1 % (0.0-2.0); EOSINOPHILS # (AUTO) 0.1 K/uL (0.0-0.4); EOSINOPHILS % (AUTO) 0.6 % (0.0-4.0); HEMATOCRIT 39.6 % (36-54); HEMOGLOBIN 13.1 g/dL (14.0-18.0); LYMPHOCYTES # (AUTO) 0.5 K/uL (1.0-5.5); LYMPHOCYTES % (AUTO) 4.8 % (20.5-51.5); MEAN CORPUSCULAR HEMOGLOBIN 26 pg (27-31); MEAN CORPUSCULAR HGB CONC 33 % (32-36); MEAN CORPUSCULAR VOLUME 80 fL (79.0-98.0); MONOCYTES # (AUTO) 0.2 K/uL (0.0-1.0); MONOCYTES % (AUTO) 1.8 % (1.7-9.3); NEUTROPHILS # (AUTO) 9.6 K/uL (1.8-7.7); NEUTROPHILS % (AUTO) 92.7 % (40.0-70.0); PLATELET COUNT (AUTO) 261 K/uL (130-430); RED BLOOD CELL COUNT(AUTO) 4.97 MIL/uL (4.2-6.2); RED CELL DISTRIBUTION WIDTH 13.9 % (9.0-15.0); WHITE BLOOD COUNT (AUTO) 10.3 K/uL (4.8-10.8)
[2021-06-05] MEDS: D5/0.45 NS 1,000 ML IV SCH (09:03)
[2021-06-05] MEDS: ASPIRIN 81 MG TABLET(ECOTRIN) PO SCH (09:15)
[2021-06-05] MEDS: FLUoxetine HCL 20 MG CAPSULE (PROzac) PO SCH (09:15)
[2021-06-05] MEDS: CHOLECALCIFEROL (VITAMIN D3) 5,000 UNIT TABLET PO SCH (09:15)
[2021-06-05] MEDS: APIXABAN 2.5 MG TABLET PO SCH ×2 (09:15→22:13)
[2021-06-05] MEDS: FAMOTIDINE 20 MG TABLET PO SCH ×2 (09:15→22:02)
[2021-06-05] MEDS: ASCORBIC ACID 500 MG TABLET PO SCH ×2 (09:16→22:01)
[2021-06-05] MEDS: LORATADINE 10 MG TABLET PO SCH (09:16)
[2021-06-05] MEDS: FUROSEMIDE 20 MG/2 ML VIAL IVP SCH ×2 (09:16→22:01)
[2021-06-05] MEDS: DOXYCYCLINE HYCLATE 100 MG in D5W 100 ML IV SCH ×2 (09:30→22:17)
[2021-06-05] MEDS: CEFTRIAXONE SOD 1 GM/ D5W 50 ML IV SCH ×2 (12:44)
[2021-06-05] MEDS: NOREPINEPHRINE BITARTRATE 4 MG in NS 246 ML IV PRN (12:52)
[2021-06-05] MEDS: ALBUTEROL MDI INHALATION 8 GM INH INH PRN (20:17)
[2021-06-05] MEDS: MELATONIN 5 MG TABLET PO SCH (21:00)
[2021-06-05] MEDS: predniSONE 20 MG TABLET PO SCH (22:02)
[2021-06-06] VITALS (27 sets, daily range): BP systolic 93–139
[2021-06-06] MEDS ORDERED: TOCILIZUMAB 600 MG in NS 100 ML IV ONE (02:45)
[2021-06-06] MEDS: PROPOFOL DRIP 100 ML IV PRN ×5 (03:15→20:02)
[2021-06-06] MEDS: NOREPINEPHRINE BITARTRATE 4 MG in NS 246 ML IV PRN (06:00)
[2021-06-06 06:48] LABS: BASOPHILS % (AUTO) 0.4 % (0.0-2.0); EOSINOPHILS # (AUTO) 0.1 K/uL (0.0-0.4); EOSINOPHILS % (AUTO) 1.5 % (0.0-4.0); HEMATOCRIT 37.9 % (36-54); HEMOGLOBIN 12.5 g/dL (14.0-18.0); LYMPHOCYTES # (AUTO) 0.4 K/uL (1.0-5.5); MEAN CORPUSCULAR HEMOGLOBIN 26 pg (27-31); MEAN CORPUSCULAR HGB CONC 33 % (32-36); MEAN CORPUSCULAR VOLUME 80 fL (79.0-98.0); MONOCYTES # (AUTO) 0.2 K/uL (0.0-1.0); MONOCYTES % (AUTO) 1.6 % (1.7-9.3); NEUTROPHILS # (AUTO) 9.1 K/uL (1.8-7.7); NEUTROPHILS % (AUTO) 92.5 % (40.0-70.0); PLATELET COUNT (AUTO) 245 K/uL (130-430); RED BLOOD CELL COUNT(AUTO) 4.73 MIL/uL (4.2-6.2); WHITE BLOOD COUNT (AUTO) 9.8 K/uL (4.8-10.8)
[2021-06-06] MEDS: D5/0.45 NS 1,000 ML IV SCH (08:00)
[2021-06-06 08:12] LABS: CALCIUM 8.4 mg/dL (8.4-11.0); CREATININE 0.91 mg/dL (0.55-1.30); POTASSIUM 3.9 mmol/L (3.5-5.1)
[2021-06-06] MEDS: ASCORBIC ACID 500 MG TABLET PO SCH ×2 (09:00→22:19)
[2021-06-06] MEDS: FAMOTIDINE 20 MG TABLET PO SCH ×2 (09:31→22:19)
[2021-06-06] MEDS: CHOLECALCIFEROL (VITAMIN D3) 5,000 UNIT TABLET PO SCH (09:31)
[2021-06-06] MEDS: APIXABAN 2.5 MG TABLET PO SCH ×2 (09:31→22:20)
[2021-06-06] MEDS: FLUoxetine HCL 20 MG CAPSULE (PROzac) PO SCH (09:31)
[2021-06-06] MEDS: LORATADINE 10 MG TABLET PO SCH (09:32)
[2021-06-06] MEDS: ASPIRIN 81 MG TABLET(ECOTRIN) PO SCH (09:32)
[2021-06-06] MEDS: FUROSEMIDE 20 MG/2 ML VIAL IVP SCH ×2 (09:33→22:20)
[2021-06-06] MEDS: DOXYCYCLINE HYCLATE 100 MG in D5W 100 ML IV SCH ×2 (09:54→22:22)
[2021-06-06] MEDS: CEFTRIAXONE SOD 1 GM/ D5W 50 ML IV SCH ×2 (12:05)
[2021-06-06] MEDS: INSULIN REGULAR, HUMAN 100 UNITS/ML, 10 ML VIAL (humuLIN R) SQ SCH ×2 (12:22→15:26)
[2021-06-06] MEDS: predniSONE 20 MG TABLET PO SCH (22:19)
[2021-06-07] VITALS (47 sets, daily range): BP systolic 68–172
[2021-06-07] MEDS: NOREPINEPHRINE BITARTRATE 4 MG in NS 246 ML IV PRN ×6 (03:27→18:55)
[2021-06-07] MEDS: PROPOFOL DRIP 100 ML IV PRN ×5 (04:27→21:49)
[2021-06-07 07:41] LABS: BASOPHILS # (AUTO) 0.1 K/uL (0.0-0.2); BASOPHILS % (AUTO) 0.7 % (0.0-2.0); EOSINOPHILS # (AUTO) 0.8 K/uL (0.0-0.4); EOSINOPHILS % (AUTO) 9.5 % (0.0-4.0); HEMATOCRIT 36.8 % (36-54); HEMOGLOBIN 11.9 g/dL (14.0-18.0); LYMPHOCYTES # (AUTO) 0.7 K/uL (1.0-5.5); LYMPHOCYTES % (AUTO) 9.1 % (20.5-51.5); MEAN CORPUSCULAR HEMOGLOBIN 26 pg (27-31); MEAN CORPUSCULAR HGB CONC 32 % (32-36); MEAN CORPUSCULAR VOLUME 81 fL (79.0-98.0); MONOCYTES # (AUTO) 0.2 K/uL (0.0-1.0); MONOCYTES % (AUTO) 2.1 % (1.7-9.3); NEUTROPHILS # (AUTO) 6.3 K/uL (1.8-7.7); NEUTROPHILS % (AUTO) 78.6 % (40.0-70.0); PLATELET COUNT (AUTO) 234 K/uL (130-430); RED BLOOD CELL COUNT(AUTO) 4.56 MIL/uL (4.2-6.2); RED CELL DISTRIBUTION WIDTH 14.2 % (9.0-15.0)
[2021-06-07 07:51] LABS: ALBUMIN 1.8 g/dL (3.4-4.8); CALCIUM 8.3 mg/dL (8.4-11.0); CREATININE 0.7 mg/dL (0.55-1.30); PHOSPHORUS 2.6 mg/dL (2.7-4.5); POTASSIUM 3.3 mmol/L (3.5-5.1); TOTAL BILIRUBIN 0.4 mg/dL (0.0-1.0)
[2021-06-07] MEDS: PIPERACILLIN/TAZO 4.5GM/DEX-IS 100 ML IV SCH ×3 (08:56→23:34)
[2021-06-07] MEDS: FUROSEMIDE 20 MG/2 ML VIAL IVP SCH ×2 (09:00→22:27)
[2021-06-07] MEDS ORDERED: TOCILIZUMAB 600 MG in NS 100 ML IV ONE (09:15)
[2021-06-07] MEDS: MIDAZOLAM IN NACL,ISO-OSMOT/PF 100 ML IV PRN ×2 (09:42→22:48)
[2021-06-07] MEDS ORDERED: IPRATROPIUM/ALBUTEROL SULFATE 3 ML AMPUL.NEB (DUONEB) INH PRN (09:45)
[2021-06-07] MEDS: MORPHINE SULFATE IN 0.9 % NACL 100 ML IV PRN ×2 (10:13→22:25)
[2021-06-07] MEDS: FLUoxetine HCL 20 MG CAPSULE (PROzac) PO SCH (10:51)
[2021-06-07] MEDS: ASPIRIN 81 MG TABLET(ECOTRIN) PO SCH (10:53)
[2021-06-07] MEDS: ASCORBIC ACID 500 MG TABLET PO SCH ×2 (10:54→22:27)
[2021-06-07] MEDS: LORATADINE 10 MG TABLET PO SCH (10:54)
[2021-06-07] MEDS: APIXABAN 2.5 MG TABLET PO SCH ×2 (10:55→22:29)
[2021-06-07] MEDS: CHOLECALCIFEROL (VITAMIN D3) 5,000 UNIT TABLET PO SCH (10:55)
[2021-06-07] MEDS: FAMOTIDINE 20 MG TABLET PO SCH ×2 (11:08→22:27)
[2021-06-07] MEDS ORDERED: POTASSIUM CHLORIDE 20 MEQ/PKT PACKET PO ONE (11:30)
[2021-06-07] MEDS ORDERED: VECURONIUM BROMIDE 10 MG/VIAL (NORCURON) IV ONE (12:15)
[2021-06-07] MEDS ORDERED: ETOMIDATE 20 MG/ 10 ML VIAL (AMIDATE) IVP ONE (12:15)
[2021-06-07] MEDS: PHENYLEPHRINE HCL 50 MG in NS 245 ML IV PRN ×2 (14:38→22:02)
[2021-06-07] MEDS ORDERED: NOREPINEPHRINE 4 MG/4 ML VIAL IV ONE (19:48)
[2021-06-07] MEDS: MELATONIN 5 MG TABLET PO SCH (21:00)
[2021-06-07] MEDS: NS IV PRN (21:53)
[2021-06-07] MEDS: NOREPINEPHRINE BITARTRATE IV PRN (21:53)
[2021-06-07] MEDS: predniSONE 20 MG TABLET PO SCH (22:27)
[2021-06-08] VITALS (30 sets, daily range): BP systolic 95–175
[2021-06-08] MEDS: PROPOFOL DRIP 100 ML IV PRN ×5 (02:59→18:06)
[2021-06-08] MEDS ORDERED: PHENYLEPHRINE HCL 10 MG/ML VIAL (NEOSYNEPHRINE) ONE ×2 (03:51→04:00)
[2021-06-08] MEDS: NS IV PRN ×4 (04:04→21:04)
[2021-06-08] MEDS: PHENYLEPHRINE HCL IV PRN ×2 (04:04→21:02)
[2021-06-08] MEDS: D5/0.45 NS 1,000 ML IV SCH ×3 (06:57→20:30)
[2021-06-08] MEDS: PIPERACILLIN/TAZO 4.5GM/DEX-IS 100 ML IV SCH ×3 (06:57→22:00)
[2021-06-08 07:54] LABS: BASOPHILS % (AUTO) 0.3 % (0.0-2.0); EOSINOPHILS # (AUTO) 0.4 K/uL (0.0-0.4); EOSINOPHILS % (AUTO) 5.2 % (0.0-4.0); HEMOGLOBIN 14.8 g/dL (14.0-18.0); LYMPHOCYTES # (AUTO) 0.5 K/uL (1.0-5.5); MEAN CORPUSCULAR HEMOGLOBIN 26 pg (27-31); MEAN CORPUSCULAR HGB CONC 32 % (32-36); MEAN CORPUSCULAR VOLUME 81 fL (79.0-98.0); MONOCYTES # (AUTO) 0.2 K/uL (0.0-1.0); MONOCYTES % (AUTO) 2.8 % (1.7-9.3); NEUTROPHILS # (AUTO) 6.7 K/uL (1.8-7.7); NEUTROPHILS % (AUTO) 85.7 % (40.0-70.0); PLATELET COUNT (AUTO) 260 K/uL (130-430); RED BLOOD CELL COUNT(AUTO) 5.67 MIL/uL (4.2-6.2); RED CELL DISTRIBUTION WIDTH 14.6 % (9.0-15.0); WHITE BLOOD COUNT (AUTO) 7.9 K/uL (4.8-10.8)
[2021-06-08 08:08] LABS: ALBUMIN 1.9 g/dL (3.4-4.8); CALCIUM 8.7 mg/dL (8.4-11.0); CREATININE 1.62 mg/dL (0.55-1.30); PHOSPHORUS 5.7 mg/dL (2.7-4.5); POTASSIUM 4.4 mmol/L (3.5-5.1); TOTAL BILIRUBIN 0.8 mg/dL (0.0-1.0)
[2021-06-08] MEDS: NOREPINEPHRINE BITARTRATE IV PRN ×2 (08:11→21:04)
[2021-06-08] MEDS: ASPIRIN 81 MG TABLET(ECOTRIN) PO SCH (08:42)
[2021-06-08] MEDS: FUROSEMIDE 20 MG/2 ML VIAL IVP SCH (08:42)
[2021-06-08] MEDS: FAMOTIDINE 20 MG TABLET PO SCH ×2 (08:43→20:58)
[2021-06-08] MEDS: FLUoxetine HCL 20 MG CAPSULE (PROzac) PO SCH (08:43)
[2021-06-08] MEDS: LORATADINE 10 MG TABLET PO SCH (08:43)
[2021-06-08] MEDS: ASCORBIC ACID 500 MG TABLET PO SCH ×2 (08:43→20:58)
[2021-06-08] MEDS: CHOLECALCIFEROL (VITAMIN D3) 5,000 UNIT TABLET PO SCH (08:43)
[2021-06-08] MEDS: APIXABAN 2.5 MG TABLET PO SCH ×2 (08:45→20:59)
[2021-06-08] MEDS: MIDAZOLAM IN NACL,ISO-OSMOT/PF 100 ML IV PRN ×2 (09:51→21:06)
[2021-06-08] MEDS ORDERED: METHYLPREDNISOLONE SOD SUCC 40 MG/ML VIAL IVP ONE (12:15)
[2021-06-08] MEDS: ACETAMINOPHEN 650 MG/20.3 ML UDC GT PRN (15:17)
[2021-06-08] MEDS: MORPHINE SULFATE IN 0.9 % NACL 100 ML IV PRN (18:08)
[2021-06-08] MEDS: METHYLPREDNISOLONE SOD SUCC 40 MG/ML VIAL IVP SCH (20:58)
[2021-06-08] MEDS: MELATONIN 5 MG TABLET PO SCH (21:00)
[2021-06-09] VITALS (19 sets, daily range): BP systolic 110–178
[2021-06-09] MEDS: PROPOFOL DRIP 100 ML IV PRN ×4 (01:22→14:26)
[2021-06-09 06:21] LABS: BASOPHILS % (AUTO) 0.2 % (0.0-2.0); HEMATOCRIT 37.5 % (36-54); HEMOGLOBIN 12.3 g/dL (14.0-18.0); LYMPHOCYTES # (AUTO) 0.3 K/uL (1.0-5.5); LYMPHOCYTES % (AUTO) 3.4 % (20.5-51.5); MEAN CORPUSCULAR HEMOGLOBIN 27 pg (27-31); MEAN CORPUSCULAR HGB CONC 33 % (32-36); MEAN CORPUSCULAR VOLUME 81 fL (79.0-98.0); MONOCYTES # (AUTO) 0.2 K/uL (0.0-1.0); MONOCYTES % (AUTO) 1.9 % (1.7-9.3); NEUTROPHILS # (AUTO) 7.7 K/uL (1.8-7.7); NEUTROPHILS % (AUTO) 94.5 % (40.0-70.0); PLATELET COUNT (AUTO) 214 K/uL (130-430); RED BLOOD CELL COUNT(AUTO) 4.63 MIL/uL (4.2-6.2); RED CELL DISTRIBUTION WIDTH 14.8 % (9.0-15.0); WHITE BLOOD COUNT (AUTO) 8.2 K/uL (4.8-10.8)
[2021-06-09 06:34] LABS: ALBUMIN 1.7 g/dL (3.4-4.8); CALCIUM 8.3 mg/dL (8.4-11.0); CREATININE 1.53 mg/dL (0.55-1.30); PHOSPHORUS 2.3 mg/dL (2.7-4.5); POTASSIUM 4.2 mmol/L (3.5-5.1); TOTAL BILIRUBIN 0.4 mg/dL (0.0-1.0)
[2021-06-09] MEDS: PIPERACILLIN/TAZO 4.5GM/DEX-IS 100 ML IV SCH ×2 (07:13→13:13)
[2021-06-09] MEDS: ACETAMINOPHEN 650 MG/20.3 ML UDC GT PRN (09:58)
[2021-06-09] MEDS: CHOLECALCIFEROL (VITAMIN D3) 5,000 UNIT TABLET PO SCH (09:59)
[2021-06-09] MEDS: FLUoxetine HCL 20 MG CAPSULE (PROzac) PO SCH (09:59)
[2021-06-09] MEDS: DOCUSATE SODIUM 100 MG CAPSULE PO PRN (09:59)
[2021-06-09] MEDS: LORATADINE 10 MG TABLET PO SCH (09:59)
[2021-06-09] MEDS: METHYLPREDNISOLONE SOD SUCC 40 MG/ML VIAL IVP SCH (09:59)
[2021-06-09] MEDS: FAMOTIDINE 20 MG TABLET PO SCH (10:00)
[2021-06-09] MEDS: ASPIRIN 81 MG TABLET(ECOTRIN) PO SCH (10:00)
[2021-06-09] MEDS: MIDAZOLAM IN NACL,ISO-OSMOT/PF 100 ML IV PRN (10:07)
[2021-06-09] MEDS: APIXABAN 2.5 MG TABLET PO SCH (10:08)
[2021-06-09] MEDS: MORPHINE SULFATE IN 0.9 % NACL 100 ML IV PRN (10:08)
[2021-06-09] MEDS: ASCORBIC ACID 500 MG TABLET PO SCH (11:09)
[2021-06-09] MEDS ORDERED: INSULIN REGULAR, HUMAN 100 UNITS/ML, 10 ML VIAL (humuLIN R) SUBCUT PRN (11:15)
[2021-06-09] MEDS ORDERED: SODIUM BICARBONATE 8.4% JECT 50 MEQ/50 ML SYRINGE IVP ONE (11:15)
[2021-06-09] MEDS: NOREPINEPHRINE BITARTRATE IV PRN (12:00)
[2021-06-09] MEDS: NS IV PRN (12:00)
[2021-06-09] MEDS ORDERED: VANCOMYCIN HCL 2,000 MG in NS 500 ML IV SCH (16:00)
== END 2021-06-09 16:59 | DRG 207 ==
LOC: SED 18:51 → STU 05-17 05:24 → SMU 05-29 11:00 → SIC 06-04 08:02
PROVIDERS: ADMIT Internal Medicine; ATTEND Internal Medicine
PROC: 5A0935A Assistance with Respiratory Ventilation, Less than 24 Consecutive Hours, High Flow/Velocity Cannula (ICD-10-PCS; 2021-05-26)
PROC: 5A09457 Assistance with Respiratory Ventilation, 24-96 Consecutive Hours, Continuous Positive Airway Pressure (ICD-10-PCS; 2021-05-26)
PROC: 5A0935A Assistance with Respiratory Ventilation, Less than 24 Consecutive Hours, High Flow/Velocity Cannula (ICD-10-PCS; 2021-06-01)
PROC: 5A09457 Assistance with Respiratory Ventilation, 24-96 Consecutive Hours, Continuous Positive Airway Pressure (ICD-10-PCS; 2021-06-02)
PROC: 5A1955Z Respiratory Ventilation, Greater than 96 Consecutive Hours (ICD-10-PCS; 2021-06-04)
PROC: 0BH17EZ Insertion of Endotracheal Airway into Trachea, Via Natural or Artificial Opening (ICD-10-PCS; 2021-06-04)
PROC: 02HV33Z Insertion of Infusion Device into Superior Vena Cava, Percutaneous Approach (ICD-10-PCS; 2021-06-04)
PROC: B548ZZA Ultrasonography of Superior Vena Cava, Guidance (ICD-10-PCS; 2021-06-04)
PROC: XW033H5 Introduction of Tocilizumab into Peripheral Vein, Percutaneous Approach, New Technology Group 5 (ICD-10-PCS; 2021-06-06)
PROC: 5A12012 Performance of Cardiac Output, Single, Manual (ICD-10-PCS; principal; 2021-06-09)
DX: U07.1 COVID-19 (principal); J12.82 Pneumonia due to coronavirus disease 2019; J80 Acute respiratory distress syndrome; I46.9 Cardiac arrest, cause unspecified; E78.00 Pure hypercholesterolemia, unspecified; E78.5 Hyperlipidemia, unspecified; F41.9 Anxiety disorder, unspecified; D64.9 Anemia, unspecified; E66.9 Obesity, unspecified; Z79.82 Long term (current) use of aspirin; Z79.899 Other long term (current) drug therapy; Z68.32 Body mass index [BMI] 32.0-32.9, adult
CPT/HCPCS: 36415; 36600; 71045; 80048; 80053; 80061; 80076; 82728; 82803-TC; 82962; 83615; 83735; 83880; 84100; 84443; 85007; 85025; 85027; 85379; 85384; 85610-TC; 85730-TC; 86140; 87040; 87070-TC; 87081; 87205-TC; 92950; 93005; 94002; 94003; 94640; 94660; 94760; 96365; 96374; 96375; 99285; 99291; G0378; J0456; J0696; J1030; J1100; J1815; J1940; J2060; J2270; J2370; J2543; J2704; J3262; J3370; J3490; J7040; J7050; J7060; J7512; J7613; Q0169; U0003